=== PATIENT | male | born 1975 | race Two or more races ===

== ENCOUNTER → 2019-11-07 | Day surgery (SDC) | payer OTHER ==
[~2019-11-07] MED LIST: INSU100I13 SQ; IPRATRPIUM/ALBUTEROL 0.5/2.5MG 3 ML NEBU. NEB PRN; IV RINGERS SOLUTION,LACTATED 1,000 ML IV SCH; ONDANSETRON PF 4 MG/2 ML VIAL. IV PRN; PROPOFOL 60 ML IV ONE
[2019-11-07 11:28] VITALS: BP 117/72
--- NOTE | 2019-11-08 17:06 | PATHOLOGY ---
[facility] Accession Number: [id number] . 01 Material submitted: . PART A: small bowel - SMALL BOWEL PART B: stomach - ANTRUM BX PART C: sigmoid colon - SIGMOID POLYP . 01 Clinical history: . None provided. . 02 Diagnosis: A. Small bowel biopsies: - No significant pathologic abnormalities. . B. Gastric biopsies, antrum: - Active chronic gastritis, marked, with Helicobacter organisms identified. . C. Colon biopsies, sigmoid polyps: - Pedunculated tubular adenoma, measuring 1.7 cm in greatest dimension. - Small hyperplastic polyp. LBQ 11/08/2019 1558 Local . 02 Comment: Sections of the small bowel biopsy reveal segments of duodenal and small intestine mucosa. Where best oriented, the mucosal villi show no sprue-like changes or significant inflammatory changes. . Sections of the gastric antral biopsy show congestion and marked active chronic inflammation. A properly controlled immunoperoxidase stain for Helicobacter reveals the presence of Helicobacter organisms. . Sections of the sigmoid colon biopsies reveal a small hyperplastic polyp and a large pedunculated tubular adenoma. There is no high grade dysplasia or evidence of malignancy. The base of the pedicle of the tubular adenoma is lined by normal colonic mucosa showing coagulative changes. (JPM/db; 11/08/2019) . Special stain performed: Immunoperoxidase stain for Helicobacter on B1. . 02 Electronically signed: . Rick La MD, Pathologist NPI- [id number] . 01 Gross description: . A. Received in formalin labeled "Jose Almodovar, small bowel rule out celiac" is a 0.5 x 0.5 x 0.1 cm aggregate of patrick-brown soft tissue fragments. The specimen is submitted entirely in A1. . B. Received in formalin labeled "Jose Almodovar, antrum BX" is a 0.3 x 0.3 x 0.1 cm fragment of patrick-brown soft tissue. The specimen is submitted entirely in B1. . C. Received in formalin labeled "Jose Almodovar, sigmoid polyp" is a 0.3 x 0.3 x 0.2 cm pink-patrick polypoid portion of mucosa, which is submitted in C1. Also present within the container is a pedunculated pink-patrick nodular polyp measuring 1.7 x 1.5 x 1.3 cm, with a stalk measuring 1.1 x 1.0 x 0.6 cm. This piece is serially sectioned and submitted in C2-C3. ([facility] [place]; 11/07/2019) [facility] 11/07/2019 1824 Local . 02 Pathologist provided ICD-10: K29.50, D12.5, K63.5, B96.81 . 02 CPT . 274633, 262467, 400483, [id number] Specimen Comment: A courtesy copy of this report has been sent to [phone], [phone] Specimen Comment: [id number] Specimen Comment: Report sent to / DR BUSTAMANTE Performed at: 01 [facility] [address], [place], [place] [id number] MD David Gerardo MD Phone: [phone] Performed at: 02 [facility] [address] [place], [place] [id number] MD Rick La MD Phone: [phone]
== END ==
LOC: SURG 07:22
PROVIDERS: ATTEND Internal Medicine Gastroenterology
DX: R19.5 Other fecal abnormalities (principal); D12.5 Benign neoplasm of sigmoid colon; K29.50 Unspecified chronic gastritis without bleeding; E11.9 Type 2 diabetes mellitus without complications; Z79.84 Long term (current) use of oral hypoglycemic drugs
CPT/HCPCS: 43239; 45385; 88305; 88342; J2405; J2704; J7120; G0105